=== PATIENT | male | born 1985 | race Caucasian/White ===

== ENCOUNTER 2018-08-23 09:16 | Emergency (ER) | payer MEDICAID, OTHER ==
[2018-08-23 09:18] VITALS: BP 145/80
[2018-08-23] MEDS ORDERED: CEPH-572 PO (22:56)
[2018-08-23] MEDS ORDERED: SULF1TAB49 PO (22:56)
== END 2018-08-23 09:26 ==
LOC: ER 09:17
DX: Z02.89 Encounter for other administrative examinations (principal); Z56.0 Unemployment, unspecified
CPT/HCPCS: 99283

== ENCOUNTER 2018-08-23 21:54 | Emergency (ER) | payer MEDICAID, OTHER ==
[~2018-08-23] VITALS: Ht 188 cm; Wt 89.0 kg
[2018-08-23 22:02] VITALS: BP 186/106
--- NOTE | 2018-08-23 22:39 | NUR ---
PT STATES, RIGHT HAND RED AND SWOLLEN. NUMB. NOW STATES LEFT HAND IS STARTING TO GET SWOLLEN
[2018-08-23] MEDS ORDERED: CEPH-572 PO (22:56)
[2018-08-23] MEDS ORDERED: SULF1TAB49 PO (22:56)
--- NOTE | 2018-08-24 00:03 | NUR ---
SWEATSHIRT AND FLANNEL SHIRT GIVEN TO PAT. HIS BEDDING AND CLOTHES WERE STOLEN.
== END 2018-08-23 23:25 | disposition home or self-care (01) ==
LOC: ER 21:55
DX: L03.113 Cellulitis of right upper limb (principal); Z79.899 Other long term (current) drug therapy; Z56.0 Unemployment, unspecified
CPT/HCPCS: 99283